=== PATIENT | female | born 1995 | race African-American/Black ===

== ENCOUNTER 2017-08-12 11:43 | Emergency (ER) | payer OTHER ==
[2017-08-12] MEDS ORDERED: NS 0.9% 1000 ML* 1,000 ML IV ONE (15:12)
[2017-08-12] MEDS ORDERED: methylPREDNISolone 125 MG* 2 ML VIAL IV ONE (15:13)
[2017-08-12] MEDS ORDERED: Ketorolac INJ* 30 MG/ML 1 ML VIAL IV PUSH ONE (15:13)
[2017-08-12] MEDS ORDERED: Clindamycin 600 MG IVPREMIX(* 600 MG/50 ML SDV IV ONE (15:20)
[2017-08-12] MEDS ORDERED: Penicillin G Potassium IV* 4,000,000 UNITS in NS 0.9% 100 ML* 100 ML IVPB ONE (15:25)
[2017-08-12] MEDS ORDERED: NS 0.9% 100 ML* 100 ML ONE (16:01)
[2017-08-12 16:20] LABS: Hematocrit 40 % (35-47); Mean Corpuscular HGB Conc 32 g/dl (31-36); Mean Corpuscular Hemoglobin 28 pg (27-31); Mean Corpuscular Volume 85 fL (80-97); Mean Platelet Volume 9 um3 (7.4-10.4); Red Blood Count 4.71 10^6/ul (4.0-5.4); Red Cell Distribution Width 15 % (10.5-15); White Blood Count 19.5 10^3/ul (3.5-10.8)
[2017-08-12 16:26] LABS: Add Diff/Slide Review? Slide Review Added; Comments Flag Yes
[2017-08-12 16:39] LABS: BUN/Creatinine Ratio 12.2 (8-20); C Reactive Protein 215.13 mg/L (< 5.00); Calcium 9.4 mg/dL (8.6-10.3); EGFR African American 101.6 (>60); Globulin 3.7 g/dL (2-4); Potassium 3.7 mmol/L (3.5-5.0); Total Bilirubin 1.5 mg/dL (0.2-1.0); Total Protein 7.7 g/dL (6.4-8.9)
--- NOTE | 2017-08-12 18:15 | ED ---
Throat Pain/Nasal Congestion - HPI Summary HPI Summary: Pt here w/ ST and dysphagia x 2+ days (started Saturday night). Today she is having pain w/ speaking and hasn't eaten since Saturday d/t pain. Reports she hasn't been drinking either. No known h/o strep/mono. No known sick contacts however she's been run down studying for finals. Has not tried anything for pain as she's not been able to swallow well. Has had fevers on/off. Denies nausea, vomiting, diarrhea. - History of Current Complaint Chief Complaint: EDThroatPain Time Seen by Provider: 08/12/17 14:24 Hx Obtained From: Patient - Allergies/Home Medications Allergies/Adverse Reactions: Allergies Allergy/AdvReac Type Severity Reaction Status Date / Time No Known Allergies Allergy Verified 08/12/17 13:10 PMH/Surg Hx/FS Hx/Imm Hx Previously Healthy: Yes Endocrine/Hematology History: Denies: Hx Blood Disorders - Immunization History Immunizations Up to Date: Yes Infectious Disease History: No Infectious Disease History: Denies: Traveled Outside the [place] in Last 30 Days - Family History Known Family History: Positive: None - Social History Occupation: Student Lives: Dormitory/Roommates Alcohol Use: Occasionally Hx Substance Use: No Substance Use Type: Reports: None Hx Tobacco Use: No Smoking Status (MU): Never Smoked Tobacco Review of Systems Positive: Fever. Negative: Chills Eyes: Negative Negative: Drainage, Erythema Positive: Sore Throat. Negative: Ear Ache, Nasal Discharge Cardiovascular: Negative Respiratory: Negative Gastrointestinal: Negative Negative: flank pain, hematuria Musculoskeletal: Negative Skin: Negative Neurological: Negative Psychological: Normal All Other Systems Reviewed And Are Negative: Yes Physical Exam Triage Information Reviewed: Yes Vital Signs On Initial Exam: Initial Vitals Temp Pulse Resp BP Pulse Ox 98.5 F 108 18 129/79 97 08/12/17 11:45 08/12/17 11:45 08/12/17 11:45 08/12/17 11:45 08/12/17 11:45 Vital Signs Reviewed: Yes Appearance: Positive: Well-Appearing - sitting calmly, not speaking - writes comments on paper and/or nods head for yes/no questions. Handling secretions., Obese Skin: Positive: Warm, Dry Head/Face: Positive: Normal Head/Face Inspection - sinuses NTTP Eyes: Positive: Normal, EOMI, Conjunctiva Clear. Negative: Conjunctiva Inflammed, Discharge ENT: Positive: Hearing grossly normal, Pharyngeal erythema, TMs normal, Tonsillar swelling - +3-4, Tonsillar exudate, Muffled voice, Uvula midline. Negative: Nasal congestion, Nasal drainage Neck: Positive: Supple, Tenderness @ - submandibular TTP Respiratory/Lung Sounds: Positive: Clear to Auscultation, Breath Sounds Present. Negative: Rales, Rhonchi, Stridor, Wheezes Cardiovascular: Positive: Normal, Tachycardia, S1, S2. Negative: Murmur, Rub Abdomen Description: Positive: Nontender, No Organomegaly, Soft Bowel Sounds: Positive: Present Musculoskeletal: Positive: Normal, Strength/ROM Intact - no neck pain/stiffness Neurological: Positive: Normal, Sensory/Motor Intact, Alert, Oriented to Person Place, Time, CN Intact II-III Psychiatric: Positive: Normal - Toby Coma Scale Coma Scale Total: 15 Diagnostics - Vital Signs Vital Signs Temp Pulse Resp BP Pulse Ox 08/12/17 17:12 98.4 F 93 18 132/83 98 08/12/17 11:45 98.5 F 108 18 129/79 97 - Laboratory Lab Results: Lab Results 08/12/17 08/12/17 08/12/17 Range/Units 14:12 15:50 15:50 WBC 19.5 H (3.5-10.8) 10^3/ul RBC 4.71 (4.0-5.4) 10^6/ul Hgb 13.0 (12.0-16.0) g/dl Hct 40 (35-47) % MCV 85 (80-97) fL MCH 28 (27-31) pg MCHC 32 (31-36) g/dl RDW 15 (10.5-15) % Plt Count 249 (150-450) 10^3/ul MPV 9 (7.4-10.4) um3 Neut % (Auto) 83.1 H (38-83) % Lymph % (Auto) 7.4 L (25-47) % [place] % (Auto) 8.8 (1-9) % Eos % (Auto) 0.3 (0-6) % Baso % (Auto) 0.4 (0-2) % Absolute Neuts (auto) 16.2 H (1.5-7.7) 10^3/ul Absolute Lymphs (auto) 1.4 (1.0-4.8) 10^3/ul Absolute Monos (auto) 1.7 H (0-0.8) 10^3/ul Absolute Eos (auto) 0 (0-0.6) 10^3/ul Absolute Basos (auto) 0.1 (0-0.2) 10^3/ul Absolute Nucleated RBC 0 10^3/ul Nucleated RBC % 0 Sodium 139 (133-145) mmol/L Potassium 3.7 (3.5-5.0) mmol/L Chloride 106 (101-111) mmol/L Carbon Dioxide 24 (22-32) mmol/L Anion Gap 9 (2-11) mmol/L BUN 11 (6-24) mg/dL Creatinine 0.90 (0.51-0.95) mg/dL Est GFR ( Amer) 101.6 (>60) Est GFR (Non-Af Amer) 79.0 (>60) BUN/Creatinine Ratio 12.2 (8-20) Glucose 81 (70-100) mg/dL Lactic Acid (0.5-2.0) mmol/L Calcium 9.4 (8.6-10.3) mg/dL Total Bilirubin 1.50 H (0.2-1.0) mg/dL AST 18 (13-39) U/L ALT 14 (7-52) U/L Alkaline Phosphatase 67 (34-104) U/L C-Reactive Protein 215.13 H (< 5.00) mg/L Total Protein 7.7 (6.4-8.9) g/dL Albumin 4.0 (3.2-5.2) g/dL Globulin 3.7 (2-4) g/dL Albumin/Globulin Ratio 1.1 (1-3) Group A Strep Rapid Positive H (Negative) 08/12/17 Range/Units 15:50 WBC (3.5-10.8) 10^3/ul RBC (4.0-5.4) 10^6/ul Hgb (12.0-16.0) g/dl Hct (35-47) % MCV (80-97) fL MCH (27-31) pg MCHC (31-36) g/dl RDW (10.5-15) % Plt Count (150-450) 10^3/ul MPV (7.4-10.4) um3 Neut % (Auto) (38-83) % Lymph % (Auto) (25-47) % [place] % (Auto) (1-9) % Eos % (Auto) (0-6) % Baso % (Auto) (0-2) % Absolute Neuts (auto) (1.5-7.7) 10^3/ul Absolute Lymphs (auto) (1.0-4.8) 10^3/ul Absolute Monos (auto) (0-0.8) 10^3/ul Absolute Eos (auto) (0-0.6) 10^3/ul Absolute Basos (auto) (0-0.2) 10^3/ul Absolute Nucleated RBC 10^3/ul Nucleated RBC % Sodium (133-145) mmol/L Potassium (3.5-5.0) mmol/L Chloride (101-111) mmol/L Carbon Dioxide (22-32) mmol/L Anion Gap (2-11) mmol/L BUN (6-24) mg/dL Creatinine (0.51-0.95) mg/dL Est GFR ( Amer) (>60) Est GFR (Non-Af Amer) (>60) BUN/Creatinine Ratio (8-20) Glucose (70-100) mg/dL Lactic Acid 0.7 (0.5-2.0) mmol/L Calcium (8.6-10.3) mg/dL Total Bilirubin (0.2-1.0) mg/dL AST (13-39) U/L ALT (7-52) U/L Alkaline Phosphatase (34-104) U/L C-Reactive Protein (< 5.00) mg/L Total Protein (6.4-8.9) g/dL Albumin (3.2-5.2) g/dL Globulin (2-4) g/dL Albumin/Globulin Ratio (1-3) Group A Strep Rapid (Negative) Result Diagrams: 08/12/17 15:50 08/12/17 15:50 Lab Statement: Any lab studies that have been ordered have been reviewed, and results considered in the medical decision making process. Re-Evaluation - Re-Evaluation First Eval Change: Improved - pt speaking comfortably, reports pain and swelling are MUCH improved - she is able to drink well and no trouble breathing; appears more relaxed, smiling, friend is here w/ her and they are talking EENT Course/Dx - Course Course Of Treatment: Pt here w/ ST and dysphagia. She has pain w/ speaking to the point where she writes down her answers unless they're "yes/no" responses. Tonsils are +3-4 w/ copious exudates and erythema. She has + strep and so IV clindamycin + PCN were administered + solumedrol, IVF and tordol. Pt's pain/ swelling improved where she could speak and tolerate PO fluids w/o difficulty. Will d/c w/ anxb, NSAID's and steroid and reviewed danger s/sx of when to return to ED. - Diagnoses Provider Diagnoses: Acute bacterial tonsillitis, Strep pharyngitis Discharge - Discharge Plan Condition: Stable Disposition: HOME Prescriptions: Ibuprofen TAB* [Motrin TAB* 800 MG] 800 mg PO Q8HR PRN #20 tab PRN Reason: Pain Penicillin VK TAB* [Penicillin VK 250 mg Tab*] 250 mg PO QID #40 tab predniSONE TAB* [Deltasone TAB*] 60 mg PO DAILY #5 tab Patient Education Materials: Strep Throat (ED), Tonsillitis (ED) Forms: *School Release Referrals: [facility] [Primary Care Provider] - Additional Instructions: Warm salt water gargles 3-5 times a day for relief of pain, swelling You may take ibuprofen as directed (sent to pharmacy) Complete antibiotics and steroids as directed as well Follow-up with [facility] tomorrow - call tomorrow morning to make an appointment and make sure your medications are sent/filler picker *If you develop difficulty breathing or swallowing, headache, neck pain, return to ED
[2017-08-12 18:40] VITALS: BP 124/76
== END 2017-08-12 18:38 | disposition home or self-care (01) ==
LOC: ED 11:43
DX: J03.80 Acute tonsillitis due to other specified organisms (principal); B96.89 Other specified bacterial agents as the cause of diseases classified elsewhere
CPT/HCPCS: 36415; 80053; 83605; 85025; 86140; 87651; 96361; 96365; 96366; 96374; 96375; 96376; 99285; J1885; J2540; J2930